=== PATIENT | female | born 1940 | race Caucasian/White ===

== ENCOUNTER 2020-06-03 11:21 | Outpatient (CLI) | payer MEDICARE, OTHER, SELFPAY ==
--- NOTE | 2020-06-03 11:38 | XR_ITS ---
WS: [id number] LEFT ANKLE: 2 VIEW(S) TECHNIQUE: AP and lateral. HISTORY: L ANKLE PAIN COMPARISON: None available. Oblique nondisplaced fracture through the distal fibula. Mild narrowing of the ankle joint. Diffuse osteopenia. Moderate amount of soft tissue edema surrounding the ankle. XR/XR ankle LT 2V [id number] IMPRESSION: 1. Nondisplaced oblique fracture distal fibula. 2. Mild osteopenia and mild osteoarthritis.
--- NOTE | 2020-06-03 11:38 | XR_ITS ---
WS: [id number] RIGHT KNEE: 2 VIEW(S) TECHNIQUE: AP and lateral. HISTORY: R KNEE PAIN COMPARISON: 01/24/2018 No fracture or dislocation. Mild narrowing of the joint spaces. Cerclage wire at the medial joint space is unchanged since the pr ior study. Healed prior fracture proximal fibula. No joint effusion. No soft tissue abnormality. XR/XR knee RT 1-2V [id number] IMPRESSION: 1. No acute fracture. 2. Mild tricompartment arthropathy.
== END 2020-06-03 11:22 | disposition home or self-care (01) ==
LOC: RAD 11:34
PROVIDERS: PCP Family Medicine; Visit Provider Family Medicine
DX: I48.91 Unspecified atrial fibrillation (principal); M12.861 Other specific arthropathies, not elsewhere classified, right knee; S82.832A Other fracture of upper and lower end of left fibula, initial encounter for closed fracture; X58.XXXA Exposure to other specified factors, initial encounter; M85.88 Other specified disorders of bone density and structure, other site
CPT/HCPCS: 73560; 73600

== ENCOUNTER 2020-06-06 15:36 | Outpatient (CLI) | payer MEDICARE, OTHER, SELFPAY | END 2020-06-06 15:37 | disposition home or self-care (01) | LOC: SPT 15:37 | PROVIDERS: PCP Family Medicine; Visit Provider Orthopaedic Surgery | DX: Z46.89 Encounter for fitting and adjustment of other specified devices (principal); S82.892D Other fracture of left lower leg, subsequent encounter for closed fracture with routine healing; X58.XXXD Exposure to other specified factors, subsequent encounter | CPT/HCPCS: 97760; L4361 ==

== ENCOUNTER → 2020-06-21 09:06 | Outpatient (BNVA) | payer MEDICARE, OTHER, SELFPAY | PROVIDERS: PCP Family Medicine; Visit Provider Orthopaedic Surgery | DX: S82.892A Other fracture of left lower leg, initial encounter for closed fracture (principal); X58.XXXA Exposure to other specified factors, initial encounter | CPT/HCPCS: 73610 ==

== ENCOUNTER → 2020-07-19 09:20 | Outpatient (BNVA) | payer MEDICARE, OTHER, SELFPAY | PROVIDERS: PCP Family Medicine; Visit Provider Orthopaedic Surgery | DX: S82.899A Other fracture of unspecified lower leg, initial encounter for closed fracture (principal) | CPT/HCPCS: 73590 ==

== ENCOUNTER 2021-03-10 13:36 | Outpatient (CLI) | payer MEDICARE, OTHER, SELFPAY ==
--- NOTE | 2021-03-10 13:43 | XR_ITS ---
WS: [id number] SCREENING DEXA SCAN [employer] CLINICAL INFORMATION: POSTMENOPAUSAL COMPARISON: None. FINDINGS: The L1-L4 bone mineral density measures 0.911 g/cm2. This corresponds to a T score score of -2.2 and Z score of -0.7. Left femoral neck bone mineral density measures 0.721 g/cm2. This corresponds to a T score of -2.3 an d Z score of -0.4. Right femoral neck bone mineral density measures 0.677 g/cm2. This corresponds to a T score -2.6of an d Z score of -0.7. Mean femoral neck bone mineral density measures 0.699 g/cm2. This corresponds to a T score of -2.5 an d Z score of -0.6. XR/XR DEXA axial skeleton* [id number] IMPRESSION: Osteopenia lumbar spine at the upper end of the range. Osteoporosis femoral nec ks. Patient's FRAX calculated 10 year probability for major osteoporotic fracture i s 32.5 % and osteoporotic hip fracture is 12.6%.
== END 2021-03-10 13:37 | disposition home or self-care (01) ==
PROVIDERS: PCP Family Medicine; Visit Provider Family Medicine
DX: Z78.0 Asymptomatic menopausal state (principal); M85.88 Other specified disorders of bone density and structure, other site
CPT/HCPCS: 77080

== ENCOUNTER → 2021-12-08 08:54 | Outpatient (BNVA) | payer MEDICARE, OTHER, SELFPAY | PROVIDERS: PCP Family Medicine; Visit Provider Family Medicine | DX: I48.91 Unspecified atrial fibrillation (principal); I50.9 Heart failure, unspecified; E03.9 Hypothyroidism, unspecified; I10 Essential (primary) hypertension; E78.5 Hyperlipidemia, unspecified; I25.10 Atherosclerotic heart disease of native coronary artery without angina pectoris | CPT/HCPCS: 80053; 80061; 84443; 85025 ==

== ENCOUNTER → 2022-05-14 14:08 | Outpatient (BNVA) | payer MEDICARE, OTHER, SELFPAY | PROVIDERS: PCP Family Medicine; Visit Provider Family Medicine | DX: I10 Essential (primary) hypertension (principal); E78.5 Hyperlipidemia, unspecified; I48.91 Unspecified atrial fibrillation; E03.9 Hypothyroidism, unspecified | CPT/HCPCS: 80053; 80061; 84443; 85025; 86140 ==

== ENCOUNTER 2023-04-12 10:21 | Outpatient (CLI) | payer MEDICARE, OTHER, SELFPAY ==
--- NOTE | 2023-04-12 10:32 | XR_ITS ---
WS: [id number] PA and lateral chest, 04/12/2023 Clinical Data: WEAKNESS/ABNORMAL WEIGHT LOSS Comparison: 2 view chest, 10/10/2015 Findings: There is a large right pleural effusion and a small left pleural effusion. No pneumonia or pneumothorax is seen. The pulmonary vascularity is not increased. The heart is probably slightly enla rged. There is a multi lead cardiac pacemaker with the generator overlying the left lateral chest. Th ere is an artificial cardiac valve. The aortic arch and descending thoracic aorta show tortuosity. Th ere are clips in the right upper quadrant from a cholecystectomy. Impression: 1. Large right pleural effusion and small left pleural effusion. 2. Probable cardiomegaly and atherosclerosis. 3. Multilead cardiac pacemaker and defibrillator in good position.
== END 2023-04-12 10:22 | disposition home or self-care (01) ==
PROVIDERS: PCP Family Medicine; Visit Provider Nurse Practitioner Family
DX: R53.1 Weakness (principal); R63.4 Abnormal weight loss; J90 Pleural effusion, not elsewhere classified; Z95.810 Presence of automatic (implantable) cardiac defibrillator
CPT/HCPCS: 71046

== ENCOUNTER 2023-04-25 12:34 | Outpatient (CLI) | payer MEDICARE, OTHER, SELFPAY ==
--- NOTE | 2023-04-25 12:42 | XR_ITS ---
WS: [id number] XR chest 2V* [id number] REASON FOR EXAM: SHORTNESS OF BREATH FINDINGS: Compared to the previous examination of 04/12/2023, left pleural effusion persists, without significant change. Large right pleural effusion persists without significant interval change. There is been partial reexpansion of the areas of atelectasis in the right middle and right lower lob es. No other significant interval change is identified. IMPRESSION: Persistent bilateral pleural effusions with partial reexpansion of atelectasis in the right lung as a raoul.
== END 2023-04-25 12:35 | disposition home or self-care (01) ==
PROVIDERS: PCP Nurse Practitioner Family; Visit Provider Nurse Practitioner Family
DX: R06.02 Shortness of breath (principal)
CPT/HCPCS: 71046

== ENCOUNTER 2023-05-07 12:44 | Outpatient (CLI) | payer MEDICARE, OTHER, SELFPAY ==
--- NOTE | 2023-05-07 12:53 | XR_ITS ---
WS: [id number] EXAMINATION: XR wrist LT min 3V* [id number] REASON FOR EXAM: ACCIDENTAL FALL/L WRIST PAIN COMPARISON: None available. ORDER DATE: 05/07/2023 1:13 PM FINDINGS: There is currently no definite sign of any acute osseous change with diffuse degenerative changes thr oughout the wrist.. There there is prominent subcutaneous edema throughout the thenar region of the p roximal hand as well as the wrist.. There are vascular calcifications in the radial artery. IMPRESSION: Severe soft tissue edema surrounding the wrist and thenar region as noted. Recommend follow-up imagin g imaging including a carpal series in a few days after some of the edema subsides to reevaluate for occult fracture
== END 2023-05-07 12:45 | disposition home or self-care (01) ==
PROVIDERS: PCP Nurse Practitioner Family; Visit Provider Family Medicine
DX: M25.532 Pain in left wrist (principal); R60.9 Edema, unspecified
CPT/HCPCS: 73110

== ENCOUNTER 2023-05-13 13:23 | Outpatient (CLI) | payer MEDICARE, OTHER, SELFPAY ==
--- NOTE | 2023-05-13 14:06 | XRR_ITS ---
PROCEDURE INFORMATION: Exam: XR Left Hand Exam date and time: 05/13/2023 2:26 PM Age: 82 years old Clinical indication: Pain and injury or trauma; Fall; Blunt trauma (contusions or hematomas); Hand; Left; Wrist; Injury details: HX of lymphoma; Additional info: Acute pain of L wrist TECHNIQUE: Imaging protocol: Radiologic exam of the left hand. Views: 3 or more views. COMPARISON: CR XR wrist LT min 3V* [id number] 05/07/2023 1:05 PM FINDINGS: Bones/joints: Osseous structures are intact. Negative for fracture. Soft tissues: Normal. XR/XR hand LT min 3V* [id number] IMPRESSION: No acute findings.
--- NOTE | 2023-05-13 14:06 | XRR_ITS ---
PROCEDURE INFORMATION: Exam: XR Left Wrist Exam date and time: 05/13/2023 2:26 PM Age: 82 years old Clinical indication: Pain and injury or trauma; Fall; Blunt trauma (contusions or hematomas); Wrist; Left; Patient HX: HX of lymphoma; Additional info: Acute pain of left wrist TECHNIQUE: Imaging protocol: Radiologic exam of the left wrist. Views: 3 or more views. COMPARISON: CR XR wrist LT min 3V* [id number] 05/07/2023 1:05 PM FINDINGS: Bones/joints: Osseous structures are intact. Negative for fracture. Soft tissues: Normal. XR/XR wrist LT min 3V* [id number] IMPRESSION: No acute findings.
== END 2023-05-13 13:24 | disposition home or self-care (01) ==
LOC: RAD 13:28
PROVIDERS: PCP Nurse Practitioner Family; Visit Provider Nurse Practitioner Family
DX: M79.642 Pain in left hand (principal); M25.532 Pain in left wrist; Z85.72 Personal history of non-Hodgkin lymphomas
CPT/HCPCS: 73110; 73130

== ENCOUNTER 2023-06-24 16:02 | Outpatient (CLI) | payer MEDICARE, OTHER, SELFPAY ==
--- NOTE | 2023-06-24 16:34 | XRR_ITS ---
PROCEDURE INFORMATION: Exam: XR Chest Exam date and time: 06/24/2023 4:44 PM Age: 82 years old Clinical indication: Shortness of breath; Prior surgery; Surgery date: 6+ months; Surgery type: Pacemaker, heart; Patient HX: HX of lymphoma; Additional info: SOB TECHNIQUE: Imaging protocol: Radiologic exam of the chest. Views: 2 views. COMPARISON: CR XR chest 2V* [id number] 04/25/2023 12:45 PM FINDINGS: Tubes, catheters and devices: Left-sided permanent pacemaker noted. Lungs: Compressive atelectasis at the lung bases. Pleural spaces: Moderate-sized right pleural effusion. Small left pleural effusion. There is pleural fluid seen in the minor fissure of the right lung. Heart/Mediastinum: Mild cardiomegaly is noted. Bones/joints: Unremarkable. XR/XR chest 2V* [id number] IMPRESSION: 1. Mild cardiomegaly is noted. 2. Moderate-sized right pleural effusion. Small left pleural effusion. 3. Compressive atelectasis at the lung bases. 4. There is no interval change from the prior examination.
== END 2023-06-24 16:03 | disposition home or self-care (01) ==
PROVIDERS: PCP Nurse Practitioner Family; Visit Provider Nurse Practitioner Family
DX: R06.02 Shortness of breath (principal); R79.81 Abnormal blood-gas level; J90 Pleural effusion, not elsewhere classified; I51.7 Cardiomegaly; J98.11 Atelectasis
CPT/HCPCS: 71046

== ENCOUNTER 2023-07-01 12:08 | Outpatient (CLI) | payer MEDICARE, OTHER, SELFPAY ==
[2023-07-01 13:31] LABS: INR 6.09 (0.8-1.2)
== END 2023-07-01 12:09 | disposition home or self-care (01) ==
LOC: LAB 12:09
PROVIDERS: PCP Nurse Practitioner Family; Visit Provider Family Medicine
DX: I48.91 Unspecified atrial fibrillation (principal)
CPT/HCPCS: 36415; 85610

== ENCOUNTER 2023-08-21 14:10 | Outpatient (CLI) | payer MEDICARE, OTHER, SELFPAY ==
--- NOTE | 2023-08-21 14:19 | XR_ITS ---
WS: [id number] Exam: XR chest 2V* [id number] Date/Time of Exam: 08/21/2023 2:24 PM Reason For Exam: COUGH/SHORTNESS OF BREATH Comparison 06/24/2023. Increasing LEFT basal pleural effusion which now occupies the lower 50% of the LEFT pleural cavity. T here is compressive atelectasis of the lingula and LEFT lower lobe. There is also prominent RIGHT bas al pleural effusion which show some improvement since the last exam. The heart is enlarged. The upper lung zones are clear. No pneumothorax. Permanent cardiac pacer superimposes the LEFT chest. Signs of cardiac valve replacement. Cardiac enlargement with the LEFT heart border obscured due to pleural ef fusion. Bony structures are intact. IMPRESSION: 1. Increasing LEFT pleural effusion with compressive atelectasis of the LEFT lung as discussed above. 2. Improved RIGHT basal pleural effusion and atelectasis since the previous study. There is infiltrat e and atelectasis in the mid to lower RIGHT lung. 3. Cardiac enlargement as noted above.
== END 2023-08-21 14:11 | disposition home or self-care (01) ==
PROVIDERS: PCP Nurse Practitioner Family; Visit Provider Nurse Practitioner Family
DX: R05.9 Cough, unspecified (principal); R06.02 Shortness of breath; J90 Pleural effusion, not elsewhere classified; J98.11 Atelectasis; I51.7 Cardiomegaly
CPT/HCPCS: 71046

== ENCOUNTER 2023-10-16 13:01 | Outpatient (CLI) | payer MEDICARE, OTHER, SELFPAY ==
--- NOTE | 2023-10-16 13:17 | XRR_ITS ---
PROCEDURE INFORMATION: Exam: XR Chest Exam date and time: 10/16/2023 1:36 PM Age: 83 years old Clinical indication: Shortness of breath TECHNIQUE: Imaging protocol: Radiologic exam of the chest. Views: 2 views. COMPARISON: CR XR chest 2V* [id number] 08/21/2023 2:26 PM FINDINGS: Tubes, catheters and devices: Multi lead pacemaker/defibrillator. ASD closure device noted. Lungs: See Pleural spaces finding. Pleural spaces: Bilateral pleural effusions, improving on the left. Extensive consolidation/fibrosis in the right lower lobe. 5.6 x 3.2 cm hemispherical soft tissue density at the lateral right upper chest wall is probably a loculated fluid collection as it was not present 2 months ago. Heart/Mediastinum: Cardiomegaly. Bones/joints: Unremarkable. XR/XR chest 2V* [id number] IMPRESSION: Shifting pattern of effusions.
== END 2023-10-16 13:02 | disposition home or self-care (01) ==
PROVIDERS: PCP Nurse Practitioner Family; Visit Provider Nurse Practitioner Family
DX: J90 Pleural effusion, not elsewhere classified (principal)
CPT/HCPCS: 71046